=== PATIENT | female | born 1945 | race Caucasian/White ===

== ENCOUNTER 2017-03-25 08:56 | Emergency (ER) | payer OTHER, BC ==
[~2017-03-25] VITALS: Ht 165.1 cm; Wt 108.0 kg
[2017-03-25 09:58] LABS: EOSINOPHIL (%) 0.4 % (0-5); HEMATOCRIT 42.8 % (36.0-46.0); IMMATURE GRANULOCYTE (%) 0.4 % (0.0-0.7); INSTRUMENT ABS NEUTROPHIL CT 3.5 K/uL; LYMPHOCYTE COUNT 1.5 K/uL (1.0-2.8); MCH 31.7 PG (29.0-34.0); MCHC 34.1 G/DL (30.0-36.0); MEAN PLAT.VOLUME 8.9 uM^3 (9.5-12.4); MONOCYTE (%) 5.8 % (3-12); MONOCYTE COUNT 0.3 K/uL (0-0.8); NEUTROPHIL (%) 65.2 % (45-76); NEUTROPHIL COUNT 3.5 K/uL (1.8-6.4); PLATELET COUNT 337 K/uL (156-360); RBC DIS.WIDTH-CV 12.6 % (11.8-14.6); RBC DIS.WIDTH-SD 42.9 % (39-53); WHITE BLOOD COUNT 5.4 K/uL (4.1-10.2)
[2017-03-25 10:09] LABS: CHLORIDE 104 mEq/L (99-109); POTASSIUM 3.7 mEq/L (3.7-5.4); SODIUM 141 mEq/L (136-147)
[2017-03-25 10:11] LABS: GLUCOSE 118 mg/dL (70-99)
[2017-03-25 10:13] LABS: ANION GAP 11 MEQ/L (2-14)
[2017-03-25 10:15] LABS: GFR ESTIMATE (CALCULATED) > 59 mL/min/
[2017-03-25 10:16] LABS: UREA NITROGEN (BUN) 10 mg/dL (9-23)
[2017-03-25] MEDS ORDERED: NORVASC5 MG PO (11:16)
[2017-03-25] MEDS ORDERED: MOTRIN800 MG PO (11:20)
[2017-03-25 11:23] VITALS: BP 173/76
== END 2017-03-25 11:24 | disposition home or self-care (01) ==
LOC: EME 08:56
PROVIDERS: Emergency Medicine
DX: M79.605 Pain in left leg (principal); I10 Essential (primary) hypertension
CPT/HCPCS: 80048; 85025; 93971; 99281; 99284